=== PATIENT | female | born 1965 | race Caucasian/White ===

== ENCOUNTER → 2017-11-25 | Outpatient (CLI) | payer BC, OTHER ==
--- NOTE | 2017-11-25 20:21 | KCIC ---
Bilateral digital screening mammograms: Reason for examination: Routine screening. Comparison is made to previous studies dated 02/11/2016 and 09/18/2010. Interpretation was made with the benefit of CAD. The skin and nipples show no abnormalities. No abnormal axillary lymph nodes are seen. The breast parenchyma is heterogeneously dense. (Breast density: Category C.) There appears to be a small nodular density in the right breast approximately 3 cm deep to the nipple probably at the 12:00 position but seen best on CC view. This appears to measure approximately 8.5 mm in size. There also appears to be an additional small nodule posterior centrally within the right breast measuring approximately 4 mm in size. Further evaluation with ultrasound is recommended. There are no other dominant masses, suspicious calcifications or architectural distortion. Impression: Small nodular densities in the right breast at approximately the 12:00 position 3 cm from the nipple and posterior centrally within the right breast. Recommend further evaluation with ultrasound. Your patient's mammogram demonstrates that she has dense breast tissue (breast density category C or D), which could hide abnormalities, and if she has other risk factors for breast cancer that have been identified, she might benefit from supplemental screening tests that may be suggested by you as her ordering physician. Dense breast tissue, in and of itself, is a relatively common condition. Therefore, this information is not provided to cause undue concern, but rather to raise your awareness and to promote discussion with your patient regarding the presence of other risk factors, in addition to dense breast tissue. Your patient's mammography results will be sent to her. BI-RAD Category 0: Incomplete. Needs additional imaging evaluation. "Our facility is accredited by the [employer] Mammography [employer]." This patient's information has been entered into a reminder system for the patient to be notified with the results of her examination and a target date for the next mammogram. Electronically signed by: Candie Mathew MD (11/25/2017 8:19 PM) [id number]
== END | disposition home or self-care (01) ==
LOC: KCIC MAMMO 09:32
PROVIDERS: ATTEND Family Medicine
DX: Z12.31 Encounter for screening mammogram for malignant neoplasm of breast (principal)
CPT/HCPCS: 77067

== ENCOUNTER → 2017-12-08 | Outpatient (CLI) | payer BC, OTHER ==
--- NOTE | 2017-12-08 09:02 | KCIC ---
EXAM: Right breast sonogram. HISTORY: 52-year-old female presents for evaluation of nodularity within the right breast demonstrated on a screening mammogram dated 11/25/2017. TECHNIQUE: Sonographic imaging of the right breast including all 4 quadrants and the retroareolar region was performed. COMPARISON: 11/25/2017. FINDINGS: There is a somewhat bilobed hypoechoic lesion or 2 adjacent hypoechoic lesions within the 12:00 position of the right breast 3 cm from the nipple measuring 7.0 mm in conglomerate. The imaging appearance favors a complicated cystic or benign fibrocystic lesion. This demonstrates no suspicious sonographic features. This likely corresponds with nodularity in this region on the prior screening mammogram. There is no suspicious sonographic correlate for nodularity within the central right breast on the prior screening mammogram. There are benign-appearing axillary lymph nodes. IMPRESSION: 1. Suspected bilobed complicated cystic or benign fibrocystic lesion or 2 adjacent lesions within the 12:00 position of the right breast measuring 7 mm in maximum dimension, likely corresponding with nodularity of concern on the recent screening mammogram. This demonstrates no clear suspicious sonographic features. There is also no clear sonographic correlate for nodularity within the central right breast demonstrated on a screening mammogram. This favors benignity. 2. BI-RADS Category 3: Probably benign finding(s). Compression or short-term follow up with a diagnostic right breast mammogram and sonogram in 6 months is recommended to confirm stability. Electronically signed by: Janeth Montenegro MD (12/08/2017 8:59 AM) [id number]
== END | disposition home or self-care (01) ==
LOC: KCIC US 07:53
PROVIDERS: ATTEND Family Medicine
DX: R92.8 Other abnormal and inconclusive findings on diagnostic imaging of breast (principal)
CPT/HCPCS: 76641

== ENCOUNTER → 2020-05-13 | Outpatient (CLI) | payer BC, OTHER ==
--- NOTE | 2020-05-13 14:02 | KCIC ---
Bilateral digital screening mammograms: Reason for examination: Routine screening. Comparison is made to previous studies dated 11/25/2017 and 02/11/2016. Interpretation was made with the benefit of CAD. The skin and nipples show no abnormalities. No abnormal axillary lymph nodes are seen. The breast par enchyma shows scattered fibroglandular density. (Breast density: Category B.) There are no dominant m asses, suspicious calcifications or architectural distortions. Impression: No evidence of malignancy. Recommend routine screening. BI-RADS Category 1: Negative. "Our facility is accredited by the [employer] Mammography [employer]." This patient's information has been entered into a reminder system for the patient to be notified wit h the results of her examination and a target date for the next mammogram. Electronically signed by: Candie Mathew MD (05/13/2020 1:59 PM) [id number]
== END ==
LOC: KCIC MAMMO 12:25
DX: Z12.31 Encounter for screening mammogram for malignant neoplasm of breast (principal)
CPT/HCPCS: 77067